=== PATIENT | male | born 1960 | race Caucasian/White ===

== ENCOUNTER 2020-08-01 14:02 | Inpatient (IN) | payer OTHER ==
[2020-08-01 15:45] VITALS: BMI 18.4
[2020-08-01] MEDS ORDERED: BUDESONIDE/FORMETEROL FUMARATE 160/4.5 mcg INHALER IH PRN (16:30)
[2020-08-01] MEDS ORDERED: MENTHOL/PHENOL 1 EACH UD MM PRN (16:32)
[2020-08-01] MEDS ORDERED: MAG HYDROX/AL HYDROX/SIMETH 30 ML UNIT-DOSE CUP PO PRN (16:32)
[2020-08-01] MEDS ORDERED: chlordiazePOXIDE HCL 25 MG CAPSULE PO PRN (16:32)
[2020-08-01] MEDS ORDERED: ACETAMINOPHEN 325 MG TABLET (FP) PO PRN ×2 (16:32)
[2020-08-01] MEDS ORDERED: ONDANSETRON *ODT* 4 MG TABLET SL PRN (16:32)
[2020-08-01] MEDS ORDERED: MAGNESIUM HYDROX 2400MG/30ML ORAL SUSPENSION 30 ML CUP PO PRN (16:32)
[2020-08-01] MEDS ORDERED: BISMUTH SUBSALICYLATE 524 MG/30 ML UD PO PRN (16:32)
[2020-08-01] MEDS ORDERED: METHOCARBAMOL 500 MG TABLET PO PRN (16:32)
[2020-08-01] MEDS ORDERED: NICOTINE POLACRILEX 2 MG GUM BUC PRN (16:32)
[2020-08-01] MEDS ORDERED: MAGNESIUM CITRATE 300 ML BOTTLE PO PRN (16:32)
[2020-08-01] MEDS ORDERED: IBUPROFEN 400 MG TABLET (FP) PO PRN (16:32)
[2020-08-01] MEDS ORDERED: chlordiazePOXIDE HCL 25 MG CAPSULE PO ONE (16:36)
[2020-08-01] MEDS ORDERED: chlordiazePOXIDE HCL 25 MG CAPSULE ONE (16:38)
[2020-08-02] MEDS: chlordiazePOXIDE HCL 25 MG CAPSULE PO SCH ×7 (01:32→22:35)
[2020-08-02] MEDS: MELATONIN 5 MG TABLETS PO SCH ×2 (04:52→22:35)
[2020-08-02] MEDS: THIAMINE HCL 100 MG TABLET (FP) PO SCH ×2 (04:52→22:35)
[2020-08-02] MEDS: hydrOXYzine PAMOATE 25 MG CAPSULE (FP) PO SCH ×3 (04:52→08:40)
[2020-08-02] MEDS: NICOTINE 21 MG/24 HOURS TOPICAL PATCH TD SCH ×2 (08:36→10:47)
[2020-08-02] MEDS: NAPROXEN 500 MG TABLET PO SCH ×3 (08:37→22:35)
[2020-08-02] MEDS ORDERED: METHADONE HCL 10 MG TABLET PO SCH (09:45)
[2020-08-02] MEDS: amLODIPine BESYLATE 5 MG TABLET (FP) PO SCH (10:44)
[2020-08-02] MEDS: PRENATAL VITAMINS W/ FOLIC ACID TABLET (FP) PO SCH (10:44)
[2020-08-02] MEDS: DOCUSATE SODIUM 100 MG CAPSULE (FP) PO SCH (10:44)
[2020-08-02] MEDS ORDERED: METHADONE HCL 10 MG TABLET ONE (11:08)
[2020-08-02] MEDS: METHADONE 160 MG, METHADONE 10 MG PO SCH (11:10)
[2020-08-02] MEDS ORDERED: METHADONE HCL 40 MG DISPERSABLE TABLET ONE (11:10)
[2020-08-02 12:11] LABS: SYPHILIS W/ RPR CONF NON-REACTIVE (NONREACTIVE)
[2020-08-02 12:40] LABS: HIV INTERPRETATION NEGATIVE (NEGATIVE)
[2020-08-03] MEDS ORDERED: METHADONE HCL 10 MG TABLET ONE (03:59)
[2020-08-03] MEDS ORDERED: METHADONE HCL 40 MG DISPERSABLE TABLET ONE (03:59)
[2020-08-03] MEDS: chlordiazePOXIDE HCL 25 MG CAPSULE PO SCH ×4 (05:32→22:23)
[2020-08-03] MEDS: METHADONE 160 MG, METHADONE 10 MG PO SCH (05:32)
[2020-08-03] MEDS: NICOTINE 21 MG/24 HOURS TOPICAL PATCH TD SCH (10:14)
[2020-08-03] MEDS: FLUoxetine HCL 10 MG CAPSULE PO SCH (10:14)
[2020-08-03] MEDS: amLODIPine BESYLATE 5 MG TABLET (FP) PO SCH (10:14)
[2020-08-03] MEDS: PRENATAL VITAMINS W/ FOLIC ACID TABLET (FP) PO SCH (10:14)
[2020-08-03] MEDS: NAPROXEN 500 MG TABLET PO SCH ×2 (10:15→22:23)
[2020-08-03] MEDS: DOCUSATE SODIUM 100 MG CAPSULE (FP) PO SCH (10:15)
[2020-08-03] MEDS: MELATONIN 5 MG TABLETS PO SCH (22:23)
[2020-08-03] MEDS: THIAMINE HCL 100 MG TABLET (FP) PO SCH (22:23)
[2020-08-04] MEDS ORDERED: chlordiazePOXIDE HCL 10 MG CAPSULE PO PRN
[2020-08-04] MEDS ORDERED: METHADONE HCL 10 MG TABLET ONE (03:56)
[2020-08-04] MEDS ORDERED: METHADONE HCL 40 MG DISPERSABLE TABLET ONE (03:56)
[2020-08-04] MEDS: chlordiazePOXIDE HCL 10 MG CAPSULE PO SCH ×4 (05:44→22:00)
[2020-08-04] MEDS: METHADONE 160 MG, METHADONE 10 MG PO SCH (05:44)
[2020-08-04 07:11] LABS: SARS-CoV-2 NAA Not Detected (Not Detected)
[2020-08-04] MEDS: FLUoxetine HCL 10 MG CAPSULE PO SCH (10:16)
[2020-08-04] MEDS: NICOTINE 21 MG/24 HOURS TOPICAL PATCH TD SCH (10:17)
[2020-08-04] MEDS: amLODIPine BESYLATE 5 MG TABLET (FP) PO SCH (10:17)
[2020-08-04] MEDS: PRENATAL VITAMINS W/ FOLIC ACID TABLET (FP) PO SCH (10:17)
[2020-08-04] MEDS: DOCUSATE SODIUM 100 MG CAPSULE (FP) PO SCH (10:17)
[2020-08-04] MEDS: NAPROXEN 500 MG TABLET PO SCH ×2 (10:17→21:42)
[2020-08-04] MEDS: THIAMINE HCL 100 MG TABLET (FP) PO SCH (21:42)
[2020-08-04] MEDS: MELATONIN 5 MG TABLETS PO SCH (21:43)
[2020-08-05] MEDS ORDERED: METHADONE HCL 10 MG TABLET ONE (03:32)
[2020-08-05] MEDS ORDERED: METHADONE HCL 40 MG DISPERSABLE TABLET ONE (03:33)
[2020-08-05] MEDS: chlordiazePOXIDE HCL 10 MG CAPSULE PO SCH ×2 (05:33→18:30)
[2020-08-05] MEDS: METHADONE 160 MG, METHADONE 10 MG PO SCH (05:34)
[2020-08-05] MEDS: NAPROXEN 500 MG TABLET PO SCH ×2 (09:43→22:41)
[2020-08-05] MEDS: NICOTINE 21 MG/24 HOURS TOPICAL PATCH TD SCH (09:43)
[2020-08-05] MEDS: DOCUSATE SODIUM 100 MG CAPSULE (FP) PO SCH (09:43)
[2020-08-05] MEDS: FLUoxetine HCL 10 MG CAPSULE PO SCH (09:43)
[2020-08-05] MEDS: amLODIPine BESYLATE 5 MG TABLET (FP) PO SCH (09:44)
[2020-08-05] MEDS: PRENATAL VITAMINS W/ FOLIC ACID TABLET (FP) PO SCH (09:44)
[2020-08-05] MEDS: THIAMINE HCL 100 MG TABLET (FP) PO SCH (22:41)
[2020-08-05] MEDS: MELATONIN 5 MG TABLETS PO SCH (22:41)
[2020-08-06] MEDS ORDERED: METHADONE HCL 40 MG DISPERSABLE TABLET ONE (03:52)
[2020-08-06] MEDS ORDERED: METHADONE HCL 10 MG TABLET ONE (03:52)
[2020-08-06] MEDS ORDERED: chlordiazePOXIDE HCL 10 MG CAPSULE PO ONE (05:00)
[2020-08-06] MEDS: METHADONE 160 MG, METHADONE 10 MG PO SCH (05:57)
[2020-08-06] MEDS: NAPROXEN 500 MG TABLET PO SCH (09:17)
[2020-08-06] MEDS: DOCUSATE SODIUM 100 MG CAPSULE (FP) PO SCH (09:17)
[2020-08-06] MEDS: NICOTINE 21 MG/24 HOURS TOPICAL PATCH TD SCH (09:17)
[2020-08-06] MEDS: PRENATAL VITAMINS W/ FOLIC ACID TABLET (FP) PO SCH (09:17)
[2020-08-06] MEDS: amLODIPine BESYLATE 5 MG TABLET (FP) PO SCH (09:17)
[2020-08-06] MEDS: FLUoxetine HCL 10 MG CAPSULE PO SCH (09:18)
[2020-08-06 10:41] VITALS: BP 146/85; PULSE 86; TEMP 98.1
== END 2020-08-06 10:06 | disposition home or self-care (01) | DRG 774 ==
LOC: YASAS 14:02 → Y6N 08-02 00:23
PROVIDERS: ADMIT Allergy & Immunology; ATTEND Allergy & Immunology
PROC: HZ2ZZZZ Detoxification Services for Substance Abuse Treatment (ICD-10-PCS; principal; 2020-08-02)
DX: F10.230 Alcohol dependence with withdrawal, uncomplicated (principal); F14.20 Cocaine dependence, uncomplicated; F12.20 Cannabis dependence, uncomplicated; F17.210 Nicotine dependence, cigarettes, uncomplicated; F19.24 Other psychoactive substance dependence with psychoactive substance-induced mood disorder; F43.10 Post-traumatic stress disorder, unspecified; J44.9 Chronic obstructive pulmonary disease, unspecified; K40.90 Unilateral inguinal hernia, without obstruction or gangrene, not specified as recurrent; R63.4 Abnormal weight loss; Z68.1 Body mass index [BMI] 19.9 or less, adult; Z87.828 Personal history of other (healed) physical injury and trauma; Z91.013 Allergy to seafood
CPT/HCPCS: 36415; 74177-TC; 80053; 83605; 85025; 85610; 85730; 86780; 87389; 99285-25; C9803; Q9967; U0003; U0005

== ENCOUNTER 2020-08-01 17:13 | Emergency (ER) | payer OTHER ==
[2020-08-01 17:51] VITALS: BMI 24.4
[2020-08-01 19:35] LABS: BASO % 0.7 % (0-2.0); EOS % 3.3 % (0-4.5); HEMATOCRIT 37.8 % (35.4-49); HEMOGLOBIN 12.6 GM/dL (11.7-16.9); LYMPH % 32.1 % (8-40); MCH 30.9 pg (25.7-33.7); MCHC 33.5 g/dl (32.0-35.9); MEAN CELL VOLUME 92.3 fl (80-96); MEAN PLT VOLUME 8.6 fl (7.5-11.1); MONO % 6.6 % (3.8-10.2); NEUT % 57.3 % (42.8-82.8); PLATELET COUNT 197 K/MM3 (134-434); RDW 14.4 % (11.9-15.9); WHITE BLOOD COUNT 6.1 K/mm3 (4.0-10.0)
[2020-08-01 19:36] LABS: INR 0.93 (0.83-1.09); PROTHROMBIN TIME (PATIENT) 11.5 SEC (9.7-13.0)
[2020-08-01 19:38] LABS: ACTIVATED PTT 31.2 SECONDS (25.2-36.5)
[2020-08-01 19:45] LABS: POTASSIUM 4.1 mmol/L (3.5-5.1)
[2020-08-01 19:47] LABS: ALBUMIN 3.8 g/dl (3.4-5.0); BLOOD UREA NITROGEN 27.9 mg/dL (7-18); CALCIUM 8.9 mg/dL (8.5-10.1)
[2020-08-01 19:51] LABS: CREATININE 1.1 mg/dL (0.55-1.3)
[2020-08-01 19:52] LABS: BILIRUBIN,TOTAL 0.4 mg/dL (0.2-1); TOT PROT 6.9 g/dl (6.4-8.2)
[2020-08-01 19:59] VITALS: BP 150/47; PULSE 66; TEMP 98
[2020-08-01] MEDS ORDERED: KETOROLAC TROMETHAMINE 15 MG/ML VIAL IVPUSH ONE (21:43)
[2020-08-01] MEDS ORDERED: KETOROLAC TROMETHAMINE 15 MG/ML VIAL ONE (22:01)
== END 2020-08-01 23:54 | disposition home or self-care (01) ==
LOC: JER 17:13
DX: K40.90 Unilateral inguinal hernia, without obstruction or gangrene, not specified as recurrent (principal)
CPT/HCPCS: 36415; 74177-TC; 80053; 83605; 85025; 85610; 85730; 99285-25; Q9967